=== PATIENT | female | born 2000 | race African-American/Black ===

== ENCOUNTER 2018-10-08 05:08 | Emergency (ER) | payer OTHER ==
[~2018-10-08] VITALS: Ht 167.6 cm; Wt 71.0 kg
[2018-10-08] MEDS ORDERED: SODIUM CHLORIDE 0.9% 1,000 ML IV ONE (06:21)
[2018-10-08] MEDS ORDERED: ONDANSETRON HCL 4MG/2ML INJ IV STA (06:21)
[2018-10-08] MEDS ORDERED: KETOROLAC 30MG/ML VIAL IV STA (06:21)
[2018-10-08] MEDS ORDERED: MORPHINE SULFATE 4 MG/ML CPJ (NOT FOR IM USE) IV STA (06:21)
[2018-10-08 06:45] LABS: BASOPHILS % 0.6 % (0.0-2.0); EOSINOPHILS % 1.3 % (0.0-5.0); HEMATOCRIT. 34.8 % (36.0-48.0); HEMOGLOBIN. 12.1 g/dL (12.0-16.0); LYMPHOCYTES % 31.3 % (20.0-50.0); MEAN CORPUSCULAR HEMOGLOBIN 30.7 pg (28.0-32.0); MEAN CORPUSCULAR VOLUME 88.1 fL (81.0-99.0); MEAN PLATELET VOLUME 8.5 fl (7.4-10.4); MONOCYTES % 5.9 % (2.0-8.0); NEUTROPHILS % 60.9 % (40.0-76.0); PLATELET 323 x1000/uL (130-400); RED BLOOD CELL COUNT 3.95 mill/uL (4.2-5.4); RED CELL DISTRIBUTION WIDTH 12.5 % (11.6-14.6)
[2018-10-08 06:54] LABS: CHLORIDE 110 mEq/L (98-107); PROTHROMBIN TIME 10.6 sec (9.6-11.0)
[2018-10-08 07:22] LABS: CLARITY URINE TURBID (CLEAR); COLOR URINE YELLOW (YELLOW); KETONES URINE NEGATIVE (NEGATIVE); LEUKOCYTE ESTERASE URINE 1+ (NEGATIVE); NITRITE URINE NEGATIVE (NEGATIVE); OCCULT BLOOD URINE 3+ (NEGATIVE); PH URINE 8.5 (4.5-8.0); PROTEIN URINE TRACE (NEGATIVE); SPECIFIC GRAVITY URINE 1.023 (1.005-1.030); UROBILINOGEN URINE 0.2 E.U./dL (0.2-1.0)
[2018-10-08] MEDS ORDERED: MORPHINE SULFATE 4 MG/ML CPJ (NOT FOR IM USE) IV ONE (08:00)
[2018-10-08] MEDS ORDERED: ONDANSETRON HCL 4MG/2ML INJ IV ONE (08:00)
[2018-10-08] MEDS ORDERED: CEFTRIAXONE 1 G PREMIX 50 ML IV ONE (08:00)
[2018-10-08] MEDS ORDERED: HYDROMORPHONE HCL/PF 2MG/ML CPJ IV ONE (08:15)
[2018-10-08] MEDS ORDERED: HYDROCODONE/ACETAMINOPHEN 10/325MG TABLET PO ONE (10:45)
[2018-10-08 12:38] VITALS: BP 124/78
== END 2018-10-08 12:51 | disposition home or self-care (01) ==
LOC: ER 05:08
DX: N20.0 Calculus of kidney (principal); R11.2 Nausea with vomiting, unspecified
CPT/HCPCS: 36415; 74176; 80053; 81003; 83690; 85025; 85610; 96365; 96375; 96376; 99284; J0696; J1170; J1885; J2270; J2405; J7030; J7040; Z7610